=== PATIENT | male | born 1940 | race Caucasian/White ===

== ENCOUNTER → 2016-04-30 | Outpatient (CLI) | payer OTHER ==
[~2016-04-30] MED LIST: CARDURA4 M1 PO; PROSCAR5 MG PO; TOPROL XL50 MG PO
[2016-04-30 10:56] LABS: BUN/CREATININE RATIO 26.66; CALCIUM SERUM 8.4 mg/dL (8.4-10.2); CREATININE SERUM 2.4 mg/dL (0.6-1.4); POTASSIUM 5.2 mmol/L (3.5-5.1)
== END | disposition home or self-care (01) ==
LOC: CLAB 08:58
PROVIDERS: Internal Medicine Nephrology
DX: N18.3 Chronic kidney disease, stage 3 (moderate) (principal)
CPT/HCPCS: 36415; 80048

== ENCOUNTER → 2016-06-07 | Outpatient (CLI) | payer OTHER ==
[2016-06-07 11:04] LABS: BASOPHIL# 0.1 X10e3 (0-0.3); BASOPHIL% 0.3 % (0-2.5); EOSINOPHIL# 0.1 X10e3 (0-0.7); EOSINOPHIL% 0.3 % (0.0-7.0); HEMATOCRIT 42.6 % (38.0-50.0); HEMOGLOBIN 13.7 gm/dL (13.0-16.0); LYMPHOCYTE# 41.8 X10e3 (1.0-3.5); LYMPHOCYTE% 84.2 % (17.0-45.0); MEAN CELL VOLUME 91.1 FL (83-96); MEAN CORPUSCULAR HEMOGLOBIN 29.2 PG (28-34); MEAN CORPUSCULAR HGB CONC 32.1 g/dL (30-36); MEAN PLATELET VOLUME 9.4 FL (6.5-11.5); MONOCYTE% 1.9 % (3.0-12.0); NEUTROPHIL# 6.6 X10e3 (1.5-7.1); NEUTROPHIL% 13.3 % (40-75); PLATELET COUNT 131 X10e3 (140-420); RED BLOOD COUNT 4.68 X10e (3.90-5.60); RED CELL DISTRIBUTION WIDTH 15.4 % (11.0-15.5); WHITE BLOOD COUNT 49.6 X10e3 (4.0-10.5)
[2016-06-07 11:05] LABS: DIFF IND YES; URINE APPEARANCE CLEAR; URINE BILIRUBIN NEG (NEG); URINE BLOOD NEG (NEG); URINE COLOR YELLOW; URINE GLUCOSE NEG (NEG); URINE KETONE NEG (NEG); URINE LEUKOCYTE ESTERASE NEG (NEG); URINE NITRATE NEG (NEG); URINE PROTEIN 1+ (NEG); URINE SPECIFIC GRAVITY 1.017 (1.003-1.035); URINE UROBILINOGEN 0.2 MG/DL (NEG)
[2016-06-07 11:07] LABS: URBCS1 AUWI 0-2 /[HPF] (0-2); URINE BACTERIA AUWI NEG (NEGATIVE); URINE SQUAMOUS EPITHELIAL CELL NONE SEEN /[HPF]; UWBCS1 AUWI 0-2 (0-5)
[2016-06-07 11:33] LABS: CREATININE,RANDOM URINE 174 mg/dL; TOTAL PROTEIN,RANDOM URINE 73 mg/dl (<10)
[2016-06-07 11:49] LABS: SMUDGE CELLS 9 /100
[2016-06-07 11:51] LABS: PLATELET ESTIMATE DECREASED (NORMAL)
[2016-06-07 11:56] LABS: ANISOCYTOSIS SL; RBC NORMAL YES
[2016-06-07 11:57] LABS: CALCIUM SERUM 8.8 mg/dL (8.4-10.2); CREATININE SERUM 2.3 mg/dL (0.6-1.4); GLOM FILT RATE Estimated 26.4 mL/min (>60); PHOSPHOROUS 2.5 mg/dL (2.5-4.6); POTASSIUM 4.4 mmol/L (3.5-5.1)
[2016-06-11 07:59] LABS: CALCIUM (PTHINTACT) 9.2 mg/dL (8.6-10.3)
== END | disposition home or self-care (01) ==
LOC: CLAB 10:09
PROVIDERS: Internal Medicine Nephrology
DX: N18.3 Chronic kidney disease, stage 3 (moderate) (principal); E55.9 Vitamin D deficiency, unspecified
CPT/HCPCS: 36415; 80048; 81003; 82306; 82310; 82570; 83970; 84100; 84156; 85025

== ENCOUNTER → 2016-11-02 | Outpatient (CLI) | payer OTHER ==
[2016-11-02 09:21] LABS: HEMATOCRIT 43.2 % (38.0-50.0); MEAN CORPUSCULAR HEMOGLOBIN 29.3 PG (28-34); MEAN CORPUSCULAR HGB CONC 32.5 g/dL (30-36); MEAN PLATELET VOLUME 9.1 FL (6.5-11.5); RED BLOOD COUNT 4.8 X10e (3.90-5.60); RED CELL DISTRIBUTION WIDTH 14.1 % (11.0-15.5)
[2016-11-02 09:29] LABS: URINE APPEARANCE CLEAR; URINE BILIRUBIN NEG (NEG); URINE BLOOD NEG (NEG); URINE COLOR YELLOW; URINE GLUCOSE NEG (NEG); URINE KETONE NEG (NEG); URINE LEUKOCYTE ESTERASE NEG (NEG); URINE NITRATE NEG (NEG); URINE PH 5.5 (5-8); URINE PROTEIN 1+ (NEG); URINE UROBILINOGEN 0.2 MG/DL (NEG)
[2016-11-02 09:32] LABS: U HYALINE CASTS AUWI 0-2 /[LPF]; URBCS1 AUWI 0-2 /[HPF] (0-2); URINE BACTERIA AUWI NEG (NEGATIVE); URINE SQUAMOUS EPITHELIAL CELL NONE SEEN /[HPF]; UWBCS1 AUWI 0-2 (0-5)
[2016-11-02 09:33] LABS: URINE SOURCE CLEAN CATCH
[2016-11-02 09:53] LABS: BUN/CREATININE RATIO 12.22; CALCIUM SERUM 8.9 mg/dL (8.4-10.2); CREATININE SERUM 2.7 mg/dL (0.6-1.4); GLOM FILT RATE Estimated 21.6 mL/min (>60); POTASSIUM 4.3 mmol/L (3.5-5.1)
== END | disposition home or self-care (01) ==
LOC: CLAB 08:50
PROVIDERS: Internal Medicine Nephrology
DX: N18.3 Chronic kidney disease, stage 3 (moderate) (principal)
CPT/HCPCS: 36415; 80048; 81003; 85027